=== PATIENT | male | born 1985 | race Caucasian/White ===

== ENCOUNTER 2016-10-10 09:20 | Emergency (ER) | payer OTHER ==
[2016-10-10 09:30] VITALS: BP 132/88; PULSE 70; TEMP 98; BMI 26.6
--- NOTE | 2016-10-10 10:17 | PDOC ---
History of Present Illness - General Chief Complaint: Injury Stated Complaint: LACERATION Time Seen by Provider: 10/10/16 10:08 History Source: Patient Exam Limitations: No Limitations - History of Present Illness Initial Comments: 10/10/16 10:33 My chief complaint: Laceration right hand caught on clay grinder at work History of present illness: Patient is a 31-year-old male here today with a laceration to right dorsal hand and will aspect between first and second metacarpal joints. Patient has full range of motion of all digits on hand and wrist. Patient denies any numbness of right hand or digits, has tingling sensation at web between 1st and 2nd mcp jts. Patient reports that area is tender. Patient is up-to-date with immunizations. He sustained the laceration to his right hand while at work with a clay grinder be remaining in the wound. 10/10/16 11:50 10/10/16 12:00 Occurred: reports: just prior to arrival Severity: reports: mild Pain Location: reports: upper extremity (rt. dorsal hand ) Method of Injury: Yes: other (laceration by clay grinder ) Modifying Factors: improves with: other (pressure) Loss of Consciousness: no loss of consciousness Associated Symptoms (Fall): other (right dorsal hand laceration) Past History - Past Medical History Allergies/Adverse Reactions: Allergies Allergy/AdvReac Type Severity Reaction Status Date / Time No Known Allergies Allergy Verified 10/10/16 09:29 Home Medications: Ambulatory Orders Cephalexin Monohydrate [Keflex -] 500 mg PO Q8H #29 capsule 10/10/16 Other medical history: PATIENT DENIES MEDICAL HISTORY - Psycho/Social/Smoking Cessation Hx Suicidal Ideation: No Smoking History: Current some day smoker Number of Cigarettes Smoked Daily: 0 Information on smoking cessation initiated: No Hx Alcohol Use: Yes (WEEKENDS) Drug/Substance Use Hx: No Substance Use Type: Alcohol Review of Systems - Review of Systems Able to Perform ROS?: Yes Constitutional: No: Symptoms Reported HEENTM: No: Symptoms Reported Respiratory: No: Symptoms reported Cardiac (ROS): No: Symptoms Reported ABD/GI: No: Symptoms Reported : No: Symptoms Reported Integumentary: Yes: Other (horizontal laceration rt. dorsal hand proximal aspect between 1st and 2n mcp jts) Neurological: No: Symptoms reported *Physical Exam - Vital Signs Last Vital Signs Temp Pulse Resp BP Pulse Ox 98.0 F 70 18 132/88 97 10/10/16 09:24 10/10/16 09:24 10/10/16 09:24 10/10/16 09:24 10/10/16 09:24 - Physical Exam General Appearance: Yes: Appropriately Dressed Comments:: 10/10/16 10:36 radial pulse 4+ Extremity: positive: Normal Capillary Refill, Normal Range of Motion (rt. hand, all digits including thumb and index finger, ful range of motion rt. wrist), Tender (rt. dorsal hand around laceration dorsal aspect between 1 st and 2nd mcp jts ). negative: Normal Inspection (laceration rt. dorsal hand ) Integumentary: positive: Other (laceration rt. hand dorsal aspect between proximal 1st and 2nd mcpt jts) Neurologic: positive: Normal Response, Motor Strength 5/5 (all digits rt. hand and wrist), Respond to painful stimul (rt hand and all digits and between rt. 1st and 2nd fingers). negative: Numbness, Sensory Deficit (rt. hand/digits ) Procedures - Consent Consent obtained: From Patient - Laceration/Wound Repair Right Hand Wound Length: 2.6 to 5.0 cm Wound Explored: contaminated, foreign body removed (FEW SPECKS OF DARK SUBSTANCE REMOVED FROM WOUND RT. HAND LACERATION ) Wound's Depth, Shape: linear Irrigated w/ Saline: Yes Betadine Prep: Yes Anesthesia: 1% Lidocaine Amount of Anesthetic (ccs): 5 Wound Debrided: minimal Wound Repaired With: Sutures Suture Size/Type: 4:0 Number of Sutures: 5 (INTERRUPTED) Sterile Dressing Applied: Yes Progress: 10/10/16 11:43 CLEANSED LACERATION RIGHT HAND WITH BETADINE AND IRRIGATED WELL WITH NS 0.9% FEW SPECKS OF DARK SUBSTANCE REMOVED FROM WOUND, no other foreign body noted, irrigated closed with 4.0 5 interrupted sutures, DSD APPLIED 10/10/16 11:58 Medical Decision Making - Medical Decision Making 10/10/16 10:39 Patient is a 31-year-old male here today with a laceration to right dorsal hand and will aspect between first and second metacarpal joints. Patient has full range of motion of all digits on hand and wrist. Patient denies any numbness of right hand or digits. Patient reports that area is tender. Patient is up-to- date with immunizations. He sustained the laceration to his right hand while at work with a clay grinder be remaining in the wound. laceration right hand PLAN: ibuprofen 600 mg po now xray rt. hand r/o foreign body or bone injury approx 1.2 cm calcification versus non metallic foreign seen in soft tissue between 1st and 2nd base of metacarpals per Dr. Magana keflex 500 mg po now than q 8 hrs for 10 days wound care instructions given 10/10/16 11:52 10/10/16 11:55 *DC/Admit/Observation/Transfer Diagnosis at time of Disposition: Laceration of right hand with foreign body Qualifiers: Encounter type: initial encounter Qualified Code(s): S61.421A - Laceration with foreign body of right hand, initial encounter - Discharge Dispostion Disposition: HOME Condition at time of disposition: Stable - Prescriptions Prescriptions: Cephalexin Monohydrate [Keflex -] 500 mg PO Q8H #29 capsule - Patient Instructions Additional Instructions: Wound dried today on right hand been tomorrow may wash with antibacterial soap and water pat dry we've a few minutes then apply a tiny amount of bacitracin ointment and cover with Band-Aid when out a house let air out at night Return here in 12 days for suture removal any discharge from wound or redness around wound TAKE IBUPROFEN NEEDED DIRECTED BY COMPONENT LAB TECH FOR PAIN patient voiced understanding of discharge instructions and all questions were answered
[2016-10-10] MEDS ORDERED: IBUPROFEN 600 MG TABLET (FP) PO ONE (10:50)
[2016-10-10] MEDS ORDERED: CEPHALEXIN MONOHYDRATE 500 MG CAPSULE (UD) ONE (11:43)
[2016-10-10] MEDS ORDERED: CEPHALEXIN MONOHYDRATE 500 MG CAPSULE (UD) PO ONE (11:46)
== END 2016-10-10 12:01 | disposition home or self-care (01) ==
LOC: JERFT 09:20
PROC: 0HQFXZZ Repair Right Hand Skin, External Approach (ICD-10-PCS; principal; 2016-10-10)
DX: S61.421A Laceration with foreign body of right hand, initial encounter (principal); W31.89XA Contact with other specified machinery, initial encounter; Y93.89 Activity, other specified; Y92.89 Other specified places as the place of occurrence of the external cause; Y99.0 Civilian activity done for income or pay
CPT/HCPCS: 12002-25; 73130-TC-RT; 99281-25